=== PATIENT | male | born 1995 | race Caucasian/White ===

== ENCOUNTER 2017-08-24 07:07 | Emergency (ER) | payer SELFPAY ==
[~2017-08-24] VITALS: Ht 182.9 cm; Wt 116.6 kg
[2017-08-24 07:14] VITALS: BP 135/81
--- NOTE | 2017-08-24 07:16 | NUR ---
PT AMBULATED TO BED 7
--- NOTE | 2017-08-24 07:18 | NUR ---
22/M BIB c/o left knee pain with swelling x 2 days, worse with movement. Patient denies any recent injury or fall. AAOX4 WITH EVEN AND STEADY GAIT; LUNGS CLEAR BL; HR EVEN AND REGULAR. PATIENT STATES PAIN OF 7/10 AT THIS TIME. PATIENT POSITIONED FOR COMFORT; HOB ELEVATED; BEDRAILS UP X2; BED DOWN. ER MD MADE AWARE OF PT STATUS.
--- NOTE | 2017-08-24 07:21 | NUR ---
Patient being evaluated by DR TIMMONS at bedside.
[2017-08-24] MEDS ORDERED: CLINDAMYCIN 600 MG/4 ML VIAL IM ONE (07:25)
[2017-08-24] MEDS ORDERED: KETOROLAC 60 MG/2 ML VIAL IM ONE (07:25)
[2017-08-24 07:56] VITALS: BP 115/58
--- NOTE | 2017-08-24 07:56 | NUR ---
Patient discharged with v/s stable. Written and verbal after care instructions given and explained. Patient alert, oriented and verbalized understanding of instructions. Ambulatory with steady gait. All questions addressed prior to discharge. ID band removed. Patient advised to follow up with PMD. Rx of CLINDAMYCIN & VOLTAREN given. Patient educated on indication of medication including possible reaction and side effects. Opportunity to ask questions provided and answered.
== END 2017-08-24 07:56 | disposition home or self-care (01) ==
LOC: MED 07:07
DX: M25.562 Pain in left knee (principal); L73.8 Other specified follicular disorders
CPT/HCPCS: 96372; 99284; J1885; J3490